=== PATIENT | female | born 1995 | race Caucasian/White ===

== ENCOUNTER 2020-10-01 09:43 | Emergency (ER) | payer OTHER, MEDICAID, SELFPAY ==
[2020-10-01 09:44] VITALS: BP 131/72; PULSE 78; RESP 16; TEMP 36.4; O2SAT 98; BMI 29.0
--- NOTE | 2020-10-01 10:04 | ED.RN ---
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
--- NOTE | 2020-10-01 10:12 | ED.VIS.GEN ---
History of Present Illness Chief Complaint: Upper Extremity Injury Informant: Patient Narrative: 25-year-old female was at work when a piece of metal went in her volar aspect of the left fifth digit punctured both medially and laterally and then exited. She states there were some metal shavings. Unknown last tetanus. She notes full range of motion. Bleeding controlled. She states she did not want to be seen by her boss wanted her to be seen. - Past Medical History (1) Hepatitis C antibody test positive Status: Chronic (2) History of migraine Status: Chronic Past Medical History - Allergies and Home Meds Allergies/Adverse Reactions: Allergies penicillin G Allergy (Intermediate, Verified 10/01/20 09:43) Rash Primary Care Physician: [facility] [NON-STAFF] - 3-5 Days Smoking Status: Current every day smoker Review of Systems General: Denies: Chills, Fever, Sweats Eyes: Denies: Visual changes - bilaterally, Diplopia ENT: Denies: Rhinorrhea, Sore throat Cardiovascular: Denies: Chest pain, Palpitations Respiratory: Denies: Dyspnea, Cough, Dyspnea on exertion Gastrointestinal: Denies: Abdominal pain, Nausea, Vomiting, Diarrhea, Melena, Hematochezia Genitourinary: Denies: Dysuria, Hematuria, Frequency Musculoskeletal: Reports: Extremity Pain. Denies: Back pain Skin: Reports: Wounds. Denies: Rash Neurological: Denies: Headache, Weakness, Numbness Physical Exam Vital Signs/Narrative: Vital Signs Temp Pulse Resp BP Pulse Ox 10/01/20 09:44 97.6 F L 78 16 131/72 H 98 Inital Vital Signs reviewed: Yes General: Well nourished, Well developed, No Acute Distress Head: Normocephalic, Atraumatic Eyes: Perrl, EOMI ENT: Moist mucous membranes, No rhinorrhea Neck: Supple, Nontender Cardiovascular: Regular rate, Regular rhythm, No murmurs Respiratory: No distress, CTA bilaterally, Chest nontender Abdomen: Soft, Nontender, Nondistended, Normal bowel sounds Back: Nontender, Normal Inspection Extremities: No edema, - - There are small puncture wounds to the medial and lateral right fifth digit on the volar aspect. Direct testing of the flexor tendons appeared normal. (Profundus and superficialis). Neurovascular intact. Skin: Normal color, No rash Neurological: Alert, Oriented x3, Cranial nerves II-XII grossly intact, Normal Strength, Normal Sensation Psychological: Normal affect, Normal Mood Diagnostic/Tx/Re-eval - Medical Decision Making Wound care discussed with patient. Tetanus is updated. My interpretation of the plain films of the finger are no fracture and no obvious metallic foreign bodies. Patient will be placed on Keflex. Follow-up with Workmen's Comp. ED Disposition - Plan for ED Patient: Disposition: Home or Assisted Living Diagnosis: Puncture wound of finger Instructions: ED Puncture Wound (General) Prescriptions: Cephalexin [Keflex] 500 mg PO Q6 #28 cap Prescription Printed Referrals: [facility] [NON-STAFF] - 3-5 Days
[2020-10-01] MEDS: Diphth,Pertuss(Acell),Tet Vac 0.5 ML Vial IM (10:19)
--- NOTE | 2020-10-01 10:20 | RAD_ITS ---
STUDY: X-RAY - RIGHT HAND, ATTENTION FIFTH FINGER REASON FOR EXAM: Female, 25 years old. STABBED FINGER TODAY TECHNIQUE: 4 view(s) of the finger were obtained. COMPARISON: None. FINDINGS: Normal metacarpal head. Normal metacarpophalangeal joint. Normal proximal phalanx. Normal middle phalanx. Normal distal phalanx. Normal proximal interphalangeal joint. 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 Soft tissue swelling. No radiopaque foreign body is seen. RAD/Finger(s) Min 2 Views IMPRESSION: Soft tissue swelling. Electronically Signed: Teddy Macario MD at 10:55 EST , Service support ,
[2020-10-01 10:54] VITALS: BP 129/78; PULSE 84; RESP 18; O2SAT 99
--- NOTE | 2020-10-01 10:54 | ED.RN ---
THIS NURSE REVIEWED D/C INSTRUCTIONS WITH PT. PT VERBALIZED UNDERSTANDING OF INSTRUCTIONS. PT DENIES FURTHER NEEDS OR QUESTIONS AT THIS TIME. PT AMBULATES FROM ROOM ON OWN WITHOUT ASSISTANCE FROM STAFF
== END 2020-10-01 10:56 | disposition home or self-care (01) ==
PROVIDERS: Emergency Provider Emergency Medicine
DX: S61.236A Puncture wound without foreign body of right little finger without damage to nail, initial encounter (principal); W31.89XA Contact with other specified machinery, initial encounter; Y93.89 Activity, other specified; Y92.89 Other specified places as the place of occurrence of the external cause; Y99.0 Civilian activity done for income or pay; F17.200 Nicotine dependence, unspecified, uncomplicated; Z88.0 Allergy status to penicillin; Z23 Encounter for immunization
CPT/HCPCS: 73140; 90471; 90715; 99282; A4216

== ENCOUNTER 2021-03-03 19:12 | Emergency (ER) | payer MEDICAID, SELFPAY ==
[2021-03-03 19:13] VITALS: BP 132/78; PULSE 78; RESP 16; TEMP 36.9; O2SAT 99; BMI 31.3
== END 2021-03-03 21:08 ==
PROVIDERS: PCP Family Medicine
DX: R60.9 Edema, unspecified (principal)